=== PATIENT | male | born 1990 | race African-American/Black ===

== ENCOUNTER 2019-01-23 05:27 | Inpatient (IN) ==
[2019-01-23] MEDS ORDERED: ROCURONIUM 100 MG/10 ML VIAL IV ONE ×2 (06:01→09:39)
[2019-01-23] MEDS ORDERED: ETOMIDATE 20 MG/10 ML VIAL IV ONE (06:01)
[2019-01-23] MEDS ORDERED: ROCURONIUM 100 MG/10 ML VIAL IV STA (06:02)
[2019-01-23] MEDS ORDERED: ETOMIDATE 20 MG/10 ML VIAL IV STA (06:03)
[2019-01-23 06:12] LABS: PT Patient Result 11.3 SECS; Partial Thromboplastin Time 36.4 SECS (0-40)
[2019-01-23 06:19] LABS: Alanine Aminotransferase 27 U/L (16-61); Albumin 3.1 G/DL (3.4-5.0); Alkaline Phosphatase 59 U/L (45-117); Amylase 117 U/L (25-115); Aspartate Amino Transferase 23 U/L (0-37); Bilirubin,Total < 0.39 MG/DL (0.2-1.0); Blood Urea Nitrogen 19 MG/DL (7-18); Calcium 9.7 MG/DL (8.5-10.1); Glucose 216 MG/DL (74-106); Total Protein 5.6 G/DL (6.4-8.3)
[2019-01-23 06:27] LABS: Basophils % 0.5 % (0.0-0.8); Eosinophils # 0.1 10*3/uL (0.0-0.87); Eosinophils % 0.8 % (0.00-10.9); Hemoglobin 10.7 GM/DL (14.0-18.0); Immature Granulocytes % 0.9 %; Immature Granulocytes Absolute 0.06 #; Lymphocytes # 3.7 10*3/uL (1.4-4.0); Lymphocytes % 57.6 % (21.2-54.2); Mean Corpuscular HGB Conc 27.4 GM/DL (32-36); Mean Corpuscular Volume 104.8 FL (87-102); Mean Platelet Volume 11.5 FL (9.6-12.0); Monocytes % 6.2 % (1.7-12.7); Platelet Count 184 T/CUMM (130-400); Red Blood Count 3.72 MC/CUMM (3.8-5.5); Red Cell Distribution Width 13.4 % (9.3-17.3); White Blood Count 6.4 T/CUMM (4-12)
[2019-01-23 06:32] LABS: ABG HCO3 9.7 MMOL/L (20-26); ABG Oxygen Saturation 99.3 % (95-100); ABG PCO2 45.6 MM HG (35-48); ABG TCO2 11.1 MMOL/L (23-27)
[2019-01-23 06:34] LABS: ABG PH 6.946 (7.35-7.45); ABG PO2 571.4 MM HG (80-95)
[2019-01-23 06:39] LABS: Apearance,Urine Slightly Hazy (Clear); Bilirubin,Urine Negative (Negative); Blood, Urine Moderate mg/dL (Negative); Glucose,Urine (UA) Negative (Negative); Ketones,Urine Negative (Negative); Nitrite,Urine Negative (Negative); Protein,Urine Negative; RBC,Urine 3 /HPF (0-4); Sperm,Urine Occasional /HPF (Negative); Urine Color Straw (Yellow); Urine Specific Gravity 1.003 (1.001-1.035); Urine Urobilinogen < 2.0 EU/DL (0.2-1.0); WBC,Urine 2 /HPF (0-6)
[2019-01-23] MEDS ORDERED: SODIUM BICARBONATE 50 MEQ/50 ML VIAL IV ONE (06:42)
[2019-01-23 06:45] LABS: Lymphocytes 66 % (20-55); Segmented Neutrophils 27 % (50-85); Total Cells Counted 100
[2019-01-23 06:46] LABS: Anisocytosis Slight; Burr Cells 1+; Platelet Estimate Adequate
[2019-01-23 06:47] LABS: Barbiturates Screen,Urine Negative (Negative); Benzodiazepines Screen,Urine Negative (Negative); Cannabinoid Screen,Urine Positive (Negative); Opiate Screen,Urine Negative (Negative); Phencyclidine Screen,Urine Negative (Negative)
[2019-01-23] MEDS ORDERED: HEPARIN 5,000 UNIT/1 ML VIAL ONE (06:52)
[2019-01-23] MEDS ORDERED: ceFAZolin 1,000 MG VIAL ONE (06:56)
[2019-01-23 07:00] LABS: Lactic Acid 20.3 MMOL/L (0.4-2.0)
[2019-01-23 07:10] LABS: Basophils % 0.2 % (0.0-0.8); Eosinophils # 0.1 10*3/uL (0.0-0.87); Eosinophils % 0.8 % (0.00-10.9); Hematocrit 32.3 VOL% (42.0-52.0); Hemoglobin 9.9 GM/DL (14.0-18.0); Immature Granulocytes % 6.3 %; Immature Granulocytes Absolute 0.53 #; Lymphocytes # 1.9 10*3/uL (1.4-4.0); Lymphocytes % 22.5 % (21.2-54.2); Mean Corpuscular HGB Conc 30.7 GM/DL (32-36); Mean Corpuscular Volume 91.8 FL (87-102); Mean Platelet Volume 10.5 FL (9.6-12.0); Monocytes % 2.7 % (1.7-12.7); Neutrophils % 67.5 % (38.7-73.9); Platelet Count 130 T/CUMM (130-400); Red Blood Count 3.52 MC/CUMM (3.8-5.5); Red Cell Distribution Width 13.7 % (9.3-17.3); White Blood Count 8.4 T/CUMM (4-12)
[2019-01-23] MEDS ORDERED: PROPOFOL 1,000 MG/100 ML BOTTLE IV SCH ×2 (08:00→17:30)
[2019-01-23 08:20] LABS: Band Neutrophils 4 % (0-10); Lymphocytes 12 % (20-55); Platelet Estimate Adequate; Polychromasia Slight; Segmented Neutrophils 81 % (50-85); Total Cells Counted 100
[2019-01-23 09:09] LABS: ABG Base Excess -1.8 MMOL/L (-2.5-2.5); ABG HCO3 22.9 MMOL/L (20-26); ABG Oxygen Saturation 98.8 % (95-100); ABG PCO2 42.6 MM HG (35-48); ABG PH 7.354 (7.35-7.45); ABG TCO2 21.5 MMOL/L (23-27); Glucose Heart Surgery 108 MG/DL (74-106); Hematocrit Heart Surgery 32.9 PERCENT (42-52); Hemoglobin Heart Surgery 10.7 G/DL (14.0-18.0); Potassium Heart/CVR 4.2 MMOL/L (3.5-5.1)
[2019-01-23] MEDS ORDERED: SEVOFLURANE 1 UNIT/15 MINUTE INH ONE ×2 (09:38→17:06)
[2019-01-23] MEDS ORDERED: HEPARIN 10,000 UNIT/10 ML VIAL ONE (09:38)
[2019-01-23] MEDS ORDERED: PROTAMINE SULFATE 50 MG/5 ML VIAL IV ONE (09:39)
[2019-01-23] MEDS ORDERED: LACTATED RINGERS 2,000 ML IV ONE (09:39)
[2019-01-23] MEDS ORDERED: SODIUM CHLORIDE 0.9% 100 ML IV ONE (09:39)
[2019-01-23] MEDS ORDERED: MIDAZOLAM 2 MG/2 ML VIAL ONE ×2 (09:39→17:06)
[2019-01-23] MEDS ORDERED: PHENYLEPHRINE 1 MG/10 ML SYRINGE IV ONE ×2 (09:39→17:07)
[2019-01-23] MEDS ORDERED: SODIUM CHLORIDE 0.9% 1,000 ML IV ONE (09:39)
[2019-01-23] MEDS ORDERED: PHENYLEPHRINE 10 MG/1 ML VIAL IV ONE (09:39)
[2019-01-23 09:45] LABS: ABG Base Excess -0.8 MMOL/L (-2.5-2.5); ABG HCO3 23.8 MMOL/L (20-26); ABG Oxygen Saturation 99.5 % (95-100); ABG PCO2 41.4 MM HG (35-48); ABG PH 7.378 (7.35-7.45); ABG TCO2 21.8 MMOL/L (23-27)
[2019-01-23] MEDS: fentaNYL INJ 1,250 MCG in SODIUM CHLORIDE 0.9% 225 ML IV PRN ×2 (10:03→22:31)
[2019-01-23 10:38] LABS: Calcium 7.9 MG/DL (8.5-10.1); Osmolality,Calculated 285.1 MOS/KG (273-304)
[2019-01-23 10:43] LABS: Basophils % 0.1 % (0.0-0.8); Eosinophils % 0.1 % (0.00-10.9); Hematocrit 36.9 VOL% (42.0-52.0); Hemoglobin 12.1 GM/DL (14.0-18.0); Immature Granulocytes % 1.3 %; Immature Granulocytes Absolute 0.21 #; Lymphocytes # 2.1 10*3/uL (1.4-4.0); Lymphocytes % 12.8 % (21.2-54.2); Mean Corpuscular HGB Conc 32.8 GM/DL (32-36); Mean Corpuscular Volume 86.8 FL (87-102); Mean Platelet Volume 10.2 FL (9.6-12.0); Monocytes % 4.9 % (1.7-12.7); Neutrophils % 80.8 % (38.7-73.9); Platelet Count 130 T/CUMM (130-400); Red Blood Count 4.25 MC/CUMM (3.8-5.5); Red Cell Distribution Width 13.9 % (9.3-17.3); White Blood Count 16.1 T/CUMM (4-12)
[2019-01-23] MEDS: LACTATED RINGERS 1,000 ML IV SCH ×3 (11:15→23:40)
[2019-01-23] MEDS: MORPHINE 4 MG/1 ML VIAL IV PRN ×2 (13:31→17:50)
[2019-01-23 15:06] LABS: Basophils % 0.2 % (0.0-0.8); Hematocrit 35.7 VOL% (42.0-52.0); Immature Granulocytes % 0.6 %; Immature Granulocytes Absolute 0.09 #; Lymphocytes % 12.5 % (21.2-54.2); Mean Corpuscular HGB Conc 33.6 GM/DL (32-36); Mean Corpuscular Volume 84.6 FL (87-102); Mean Platelet Volume 10.5 FL (9.6-12.0); Monocytes % 7.3 % (1.7-12.7); Neutrophils % 79.4 % (38.7-73.9); Platelet Count 113 T/CUMM (130-400); Red Blood Count 4.22 MC/CUMM (3.8-5.5); Red Cell Distribution Width 14.2 % (9.3-17.3); White Blood Count 16.1 T/CUMM (4-12)
[2019-01-23] MEDS ORDERED: fentaNYL 100 MCG/2 ML VIAL ONE (17:06)
[2019-01-23] MEDS ORDERED: LACTATED RINGERS 1,000 ML IV ONE (17:07)
[2019-01-23] MEDS: ceFAZolin 2,000 MG in SYRINGE 1 EACH IV SCH (17:39)
[2019-01-24] MEDS ORDERED: ceFAZolin 2,000 MG in SYRINGE 1 EACH IV SCH (01:30)
[2019-01-24] MEDS: ceFAZolin 2,000 MG in SYRINGE 1 EACH IV SCH (01:31)
[2019-01-24] MEDS: LACTATED RINGERS 1,000 ML IV SCH ×5 (02:29→23:52)
[2019-01-24 04:22] LABS: ABG Base Excess 0.1 MMOL/L (-2.5-2.5); ABG HCO3 22.7 MMOL/L (20-26); ABG Oxygen Saturation 98.9 % (95-100); ABG PCO2 30.1 MM HG (35-48); ABG PH 7.495 (7.35-7.45); ABG PO2 227.2 MM HG (80-95); ABG TCO2 23.6 MMOL/L (23-27); Allen Test Positive; Pt O2 Delivery Device Ventilator
[2019-01-24 04:29] LABS: Basophils % 0.2 % (0.0-0.8); Eosinophils # 0.1 10*3/uL (0.0-0.87); Eosinophils % 0.6 % (0.00-10.9); Hematocrit 32.8 VOL% (42.0-52.0); Hemoglobin 10.9 GM/DL (14.0-18.0); Immature Granulocytes % 0.5 %; Immature Granulocytes Absolute 0.05 #; Lymphocytes # 2.1 10*3/uL (1.4-4.0); Lymphocytes % 19.2 % (21.2-54.2); Mean Corpuscular HGB Conc 33.2 GM/DL (32-36); Mean Platelet Volume 10.9 FL (9.6-12.0); Monocytes % 5.1 % (1.7-12.7); Neutrophils % 74.4 % (38.7-73.9); Platelet Count 115 T/CUMM (130-400); Red Blood Count 3.86 MC/CUMM (3.8-5.5); Red Cell Distribution Width 14.6 % (9.3-17.3); White Blood Count 10.9 T/CUMM (4-12)
[2019-01-24] MEDS: fentaNYL INJ 1,250 MCG in SODIUM CHLORIDE 0.9% 225 ML IV PRN (05:05)
[2019-01-24] MEDS: PANTOPRAZOLE 40 MG VIAL IV SCH (08:45)
[2019-01-24] MEDS: MORPHINE 4 MG/1 ML VIAL IV PRN ×5 (09:27→23:21)
[2019-01-24] MEDS: ENOXAPARIN 30 MG/0.3 ML SYRINGE SUBCUT SCH (11:35)
[2019-01-24 11:56] LABS: ABG HCO3 23.6 MMOL/L (20-26); ABG Oxygen Saturation 99.2 % (95-100); ABG PCO2 34.6 MM HG (35-48); ABG PH 7.427 (7.35-7.45); ABG TCO2 20.3 MMOL/L (23-27); Pt O2 Delivery Device Ventilator
[2019-01-24] MEDS: ONDANSETRON 4 MG/2 ML VIAL IV PRN (19:55)
[2019-01-25] MEDS: MORPHINE 4 MG/1 ML VIAL IV PRN ×4 (03:13→22:19)
[2019-01-25] MEDS: LACTATED RINGERS 1,000 ML IV SCH ×3 (03:13→16:00)
[2019-01-25] MEDS: ENOXAPARIN 30 MG/0.3 ML SYRINGE SUBCUT SCH (08:40)
[2019-01-25] MEDS: PANTOPRAZOLE 40 MG VIAL IV SCH (08:40)
[2019-01-25] MEDS: ONDANSETRON 4 MG/2 ML VIAL IV PRN (20:00)
[2019-01-26] MEDS: LACTATED RINGERS 1,000 ML IV SCH ×5 (02:18→20:00)
[2019-01-26 04:30] LABS: Basophils % 0.3 % (0.0-0.8); Eosinophils # 0.2 10*3/uL (0.0-0.87); Eosinophils % 1.7 % (0.00-10.9); Hematocrit 23.8 VOL% (42.0-52.0); Hemoglobin 7.5 GM/DL (14.0-18.0); Immature Granulocytes % 0.7 %; Immature Granulocytes Absolute 0.07 #; Lymphocytes # 1.7 10*3/uL (1.4-4.0); Lymphocytes % 16.7 % (21.2-54.2); Mean Corpuscular HGB Conc 31.5 GM/DL (32-36); Mean Corpuscular Volume 91.2 FL (87-102); Mean Platelet Volume 10.2 FL (9.6-12.0); Monocytes % 7.9 % (1.7-12.7); Neutrophils % 72.7 % (38.7-73.9); Platelet Count 98 T/CUMM (130-400); Red Blood Count 2.61 MC/CUMM (3.8-5.5); Red Cell Distribution Width 14.1 % (9.3-17.3); White Blood Count 10.1 T/CUMM (4-12)
[2019-01-26 04:51] LABS: Calcium 8.3 MG/DL (8.5-10.1); Osmolality,Calculated 276.7 MOS/KG (273-304)
[2019-01-26] MEDS: PANTOPRAZOLE 40 MG VIAL IV SCH (08:19)
[2019-01-26] MEDS: MORPHINE 4 MG/1 ML VIAL IV PRN (08:19)
[2019-01-26] MEDS ORDERED: SODIUM CHLORIDE 0.9% 1,000 ML IV PRN (08:41)
[2019-01-26] MEDS: ENOXAPARIN 30 MG/0.3 ML SYRINGE SUBCUT SCH (10:05)
[2019-01-26] MEDS ORDERED: hydrALAZINE 20 MG/1 ML VIAL IV ONE ×3 (11:00→13:59)
[2019-01-26] MEDS ORDERED: METOPROLOL TARTRATE 5 MG/5 ML VIAL IV PRN (11:16)
[2019-01-26] MEDS: HYDROmorphone 2 MG/1 ML VIAL IV PRN ×4 (11:50→22:00)
[2019-01-26 13:17] LABS: Basophils % 0.2 % (0.0-0.8); Eosinophils # 0.1 10*3/uL (0.0-0.87); Eosinophils % 0.9 % (0.00-10.9); Hematocrit 23.6 VOL% (42.0-52.0); Hemoglobin 7.5 GM/DL (14.0-18.0); Immature Granulocytes % 0.5 %; Immature Granulocytes Absolute 0.05 #; Lymphocytes # 1.3 10*3/uL (1.4-4.0); Lymphocytes % 12.7 % (21.2-54.2); Mean Corpuscular HGB Conc 31.8 GM/DL (32-36); Mean Corpuscular Volume 91.1 FL (87-102); Mean Platelet Volume 10.9 FL (9.6-12.0); Monocytes % 8.2 % (1.7-12.7); Neutrophils % 77.5 % (38.7-73.9); Platelet Count 106 T/CUMM (130-400); Red Blood Count 2.59 MC/CUMM (3.8-5.5); Red Cell Distribution Width 14.1 % (9.3-17.3); White Blood Count 9.9 T/CUMM (4-12)
[2019-01-26] MEDS ORDERED: LABETALOL 100 MG/20 ML VIAL IV ONE (13:22)
[2019-01-26] MEDS ORDERED: LABETALOL 20 MG/4 ML SYRINGE IV ONE (13:25)
[2019-01-26 13:55] LABS: Basophils % 0.2 % (0.0-0.8); Eosinophils # 0.1 10*3/uL (0.0-0.87); Eosinophils % 0.9 % (0.00-10.9); Hematocrit 29.5 VOL% (42.0-52.0); Hemoglobin 9.4 GM/DL (14.0-18.0); Immature Granulocytes % 0.4 %; Immature Granulocytes Absolute 0.04 #; Lymphocytes # 1.5 10*3/uL (1.4-4.0); Lymphocytes % 15.3 % (21.2-54.2); Mean Corpuscular HGB Conc 31.9 GM/DL (32-36); Mean Platelet Volume 10.5 FL (9.6-12.0); Monocytes % 6.3 % (1.7-12.7); Neutrophils % 76.9 % (38.7-73.9); Platelet Count 97 T/CUMM (130-400); Red Blood Count 3.24 MC/CUMM (3.8-5.5); Red Cell Distribution Width 13.9 % (9.3-17.3); White Blood Count 9.6 T/CUMM (4-12)
[2019-01-26] MEDS ORDERED: MIDAZOLAM 2 MG/2 ML VIAL ONE (14:15)
[2019-01-26] MEDS ORDERED: ONDANSETRON 4 MG/2 ML VIAL ONE (14:15)
[2019-01-26] MEDS ORDERED: SUCCINYLCHOLINE 200 MG/10 ML VIAL ONE (14:15)
[2019-01-26] MEDS ORDERED: SEVOFLURANE 1 UNIT/15 MINUTE INH ONE (14:15)
[2019-01-26] MEDS ORDERED: PROPOFOL 200 MG/20 ML VIAL IV ONE (14:15)
[2019-01-26 14:47] LABS: Platelet Estimate Decreased
[2019-01-26] MEDS: cloNIDine 0.3 MG/24 HR PATCH TRANSDERM SCH (15:00)
[2019-01-26] MEDS: amLODIPine 10 MG TABLET PO SCH (15:00)
[2019-01-26 15:42] LABS: Albumin 2.2 G/DL (3.4-5.0); Bilirubin,Total 0.5 MG/DL (0.2-1.0); Calcium 8.1 MG/DL (8.5-10.1); Osmolality,Calculated 274.8 MOS/KG (273-304); Total Protein 4.5 G/DL (6.4-8.3)
[2019-01-26] MEDS ORDERED: NIFEdipine 10 MG CAPSULE PO PRN (16:45)
[2019-01-27] MEDS: HYDROmorphone 2 MG/1 ML VIAL IV PRN ×8 (00:10→20:21)
[2019-01-27] MEDS: LACTATED RINGERS 1,000 ML IV SCH ×5 (05:57→21:28)
[2019-01-27 06:06] LABS: Basophils % 0.1 % (0.0-0.8); Eosinophils % 0.4 % (0.00-10.9); Hematocrit 25.2 VOL% (42.0-52.0); Hemoglobin 8.1 GM/DL (14.0-18.0); Immature Granulocytes % 0.3 %; Immature Granulocytes Absolute 0.02 #; Lymphocytes % 13.7 % (21.2-54.2); Mean Corpuscular HGB Conc 32.1 GM/DL (32-36); Mean Corpuscular Volume 89.4 FL (87-102); Mean Platelet Volume 10.6 FL (9.6-12.0); Monocytes % 11.7 % (1.7-12.7); Neutrophils % 73.8 % (38.7-73.9); Platelet Count 127 T/CUMM (130-400); Red Blood Count 2.82 MC/CUMM (3.8-5.5); Red Cell Distribution Width 13.9 % (9.3-17.3); White Blood Count 7.6 T/CUMM (4-12)
[2019-01-27 06:25] LABS: Albumin 2.2 G/DL (3.4-5.0); Bilirubin,Total 0.6 MG/DL (0.2-1.0); Calcium 8.2 MG/DL (8.5-10.1); Osmolality,Calculated 277.5 MOS/KG (273-304); Total Protein 5.3 G/DL (6.4-8.3)
[2019-01-27] MEDS: PANTOPRAZOLE 40 MG VIAL IV SCH (08:37)
[2019-01-27] MEDS: amLODIPine 10 MG TABLET PO SCH (08:38)
[2019-01-27] MEDS: ENOXAPARIN 30 MG/0.3 ML SYRINGE SUBCUT SCH (09:00)
[2019-01-27] MEDS ORDERED: ACETAMINOPHEN 325 MG TABLET ONE (12:33)
[2019-01-27] MEDS: IBUPROFEN 200 MG TABLET PO PRN (16:10)
[2019-01-28 05:22] LABS: Basophils % 0.2 % (0.0-0.8); Eosinophils % 0.4 % (0.00-10.9); Hematocrit 26.8 VOL% (42.0-52.0); Hemoglobin 8.4 GM/DL (14.0-18.0); Immature Granulocytes % 0.4 %; Immature Granulocytes Absolute 0.04 #; Lymphocytes # 1.3 10*3/uL (1.4-4.0); Lymphocytes % 12.2 % (21.2-54.2); Mean Corpuscular HGB Conc 31.3 GM/DL (32-36); Mean Corpuscular Volume 90.8 FL (87-102); Mean Platelet Volume 10.5 FL (9.6-12.0); Monocytes % 13.2 % (1.7-12.7); Neutrophils % 73.6 % (38.7-73.9); Platelet Count 168 T/CUMM (130-400); Red Blood Count 2.95 MC/CUMM (3.8-5.5); White Blood Count 10.6 T/CUMM (4-12)
[2019-01-28 05:44] LABS: Calcium 8.7 MG/DL (8.5-10.1); Osmolality,Calculated 275.8 MOS/KG (273-304)
[2019-01-28] MEDS: LACTATED RINGERS 1,000 ML IV SCH ×2 (06:22→15:24)
[2019-01-28 07:42] LABS: INR 0.9; PT Patient Result 10.1 SECS; Partial Thromboplastin Time 28.9 SECS (0-40)
[2019-01-28] MEDS: HYDROmorphone 2 MG/1 ML VIAL IV PRN ×2 (08:33→21:33)
[2019-01-28] MEDS ORDERED: VANCOMYCIN INJ 2,250 MG in SODIUM CHLORIDE 0.9% 500 ML IV ONE (09:00)
[2019-01-28] MEDS: CARVEDILOL 12.5 MG TABLET PO SCH ×2 (09:05→21:33)
[2019-01-28] MEDS: PANTOPRAZOLE 40 MG VIAL IV SCH (09:05)
[2019-01-28] MEDS: amLODIPine 10 MG TABLET PO SCH (09:05)
[2019-01-28] MEDS: IBUPROFEN 200 MG TABLET PO PRN (10:37)
[2019-01-28] MEDS: PIPERACILLIN/TAZOBACTAM 3,375 MG in SODIUM CHLORIDE 0.9% 100 ML IV SCH ×2 (11:38→18:34)
[2019-01-28 13:42] LABS: Apearance,Urine Slightly Hazy (Clear); Bacteria,Urine Occasional /HPF (Few); Bilirubin,Urine Negative (Negative); Blood, Urine Large mg/dL (Negative); Glucose,Urine (UA) Negative (Negative); Ketones,Urine Negative (Negative); Nitrite,Urine Negative (Negative); Protein,Urine 30 MG/DL; RBC,Urine 9 /HPF (0-4); Urine Color Yellow (Yellow); Urine Specific Gravity 1.008 (1.001-1.035); Urine Urobilinogen < 2.0 EU/DL (0.2-1.0); WBC,Urine 1 /HPF (0-6)
[2019-01-29] MEDS: LACTATED RINGERS 1,000 ML IV SCH ×2 (01:08→08:36)
[2019-01-29] MEDS: PIPERACILLIN/TAZOBACTAM 3,375 MG in SODIUM CHLORIDE 0.9% 100 ML IV SCH ×3 (01:37→18:59)
[2019-01-29 04:54] LABS: Basophils % 0.2 % (0.0-0.8); Eosinophils # 0.1 10*3/uL (0.0-0.87); Eosinophils % 0.4 % (0.00-10.9); Hematocrit 23.8 VOL% (42.0-52.0); Hemoglobin 7.4 GM/DL (14.0-18.0); Immature Granulocytes % 0.8 %; Immature Granulocytes Absolute 0.09 #; Lymphocytes # 1.4 10*3/uL (1.4-4.0); Lymphocytes % 11.8 % (21.2-54.2); Mean Corpuscular HGB Conc 31.1 GM/DL (32-36); Mean Corpuscular Volume 93.3 FL (87-102); Mean Platelet Volume 10.8 FL (9.6-12.0); Monocytes % 15.7 % (1.7-12.7); Neutrophils % 71.1 % (38.7-73.9); Platelet Count 190 T/CUMM (130-400); Red Blood Count 2.55 MC/CUMM (3.8-5.5); White Blood Count 11.8 T/CUMM (4-12)
[2019-01-29 05:15] LABS: Band Neutrophils 5 % (0-10); Lymphocytes 16 % (20-55); Segmented Neutrophils 68 % (50-85); Total Cells Counted 100
[2019-01-29 05:16] LABS: Hypochromasia 1+; Platelet Estimate Adequate
[2019-01-29 05:27] LABS: Calcium 7.9 MG/DL (8.5-10.1); Osmolality,Calculated 284.5 MOS/KG (273-304)
[2019-01-29] MEDS ORDERED: VANCOMYCIN INJ 1,250 MG in SODIUM CHLORIDE 0.9% 250 ML IV SCH (09:00)
[2019-01-29] MEDS: CARVEDILOL 12.5 MG TABLET PO SCH ×2 (09:27→21:15)
[2019-01-29] MEDS: amLODIPine 10 MG TABLET PO SCH (09:28)
[2019-01-29] MEDS: PANTOPRAZOLE 40 MG VIAL IV SCH (09:28)
[2019-01-29] MEDS: HYDROmorphone 2 MG/1 ML VIAL IV PRN ×4 (09:29→23:00)
[2019-01-29] MEDS: HEPARIN 5,000 UNIT/1 ML VIAL SUBCUT SCH ×2 (16:00→23:20)
[2019-01-30] MEDS: HYDROmorphone 2 MG/1 ML VIAL IV PRN ×6 (01:00→21:55)
[2019-01-30] MEDS: PIPERACILLIN/TAZOBACTAM 3,375 MG in SODIUM CHLORIDE 0.9% 100 ML IV SCH ×2 (03:42→09:56)
[2019-01-30 06:15] LABS: Basophils % 0.2 % (0.0-0.8); Eosinophils # 0.1 10*3/uL (0.0-0.87); Hematocrit 21.9 VOL% (42.0-52.0); Hemoglobin 7.1 GM/DL (14.0-18.0); Immature Granulocytes % 0.7 %; Immature Granulocytes Absolute 0.09 #; Lymphocytes # 1.7 10*3/uL (1.4-4.0); Lymphocytes % 13.5 % (21.2-54.2); Mean Corpuscular HGB Conc 32.4 GM/DL (32-36); Mean Corpuscular Volume 88.3 FL (87-102); Mean Platelet Volume 10.7 FL (9.6-12.0); Monocytes % 15.5 % (1.7-12.7); Neutrophils % 69.1 % (38.7-73.9); Platelet Count 302 T/CUMM (130-400); Red Blood Count 2.48 MC/CUMM (3.8-5.5); Red Cell Distribution Width 13.8 % (9.3-17.3); White Blood Count 12.4 T/CUMM (4-12)
[2019-01-30] MEDS: HEPARIN 5,000 UNIT/1 ML VIAL SUBCUT SCH ×3 (06:42→23:03)
[2019-01-30 06:54] LABS: Calcium 7.8 MG/DL (8.5-10.1); Osmolality,Calculated 289.3 MOS/KG (273-304)
[2019-01-30] MEDS: PANTOPRAZOLE 40 MG VIAL IV SCH (08:42)
[2019-01-30] MEDS: CARVEDILOL 12.5 MG TABLET PO SCH ×2 (08:42→23:02)
[2019-01-30] MEDS: amLODIPine 10 MG TABLET PO SCH (08:42)
[2019-01-30] MEDS: IBUPROFEN 200 MG TABLET PO PRN (08:42)
[2019-01-30 09:13] LABS: Apearance,Urine CLEAR (Clear); Bacteria,Urine Occasional /HPF (Few); Bilirubin,Urine Negative (Negative); Blood, Urine Moderate mg/dL (Negative); Glucose,Urine (UA) Negative (Negative); Ketones,Urine Negative (Negative); Nitrite,Urine Negative (Negative); Protein,Urine 30 MG/DL; RBC,Urine <1 /HPF (0-4); Urine Color Straw (Yellow); Urine Specific Gravity 1.006 (1.001-1.035); Urine Urobilinogen < 2.0 EU/DL (0.2-1.0); WBC,Urine 1 /HPF (0-6)
[2019-01-30] MEDS: DIAZEPAM 5 MG TABLET PO SCH ×3 (09:13→23:02)
[2019-01-30] MEDS: LINEZOLID INJ 600 MG in PREMIX 1 EACH IV SCH (14:36)
[2019-01-30] MEDS: LEVOFLOXACIN INJ 750 MG in PREMIX 1 EACH IV SCH (14:36)
[2019-01-31] MEDS: HYDROmorphone 2 MG/1 ML VIAL IV PRN ×7 (00:02→17:45)
[2019-01-31] MEDS: LINEZOLID INJ 600 MG in PREMIX 1 EACH IV SCH ×2 (00:50→14:50)
[2019-01-31] MEDS: DIAZEPAM 5 MG TABLET PO SCH ×4 (03:36→21:08)
[2019-01-31 04:46] LABS: Basophils % 0.2 % (0.0-0.8); Eosinophils # 0.1 10*3/uL (0.0-0.87); Eosinophils % 0.7 % (0.00-10.9); Hematocrit 21.7 VOL% (42.0-52.0); Immature Granulocytes % 0.8 %; Lymphocytes # 1.9 10*3/uL (1.4-4.0); Lymphocytes % 15.2 % (21.2-54.2); Mean Corpuscular HGB Conc 32.3 GM/DL (32-36); Mean Corpuscular Volume 88.2 FL (87-102); Mean Platelet Volume 9.5 FL (9.6-12.0); Monocytes % 15.4 % (1.7-12.7); Neutrophils % 67.7 % (38.7-73.9); Platelet Count 408 T/CUMM (130-400); Red Blood Count 2.46 MC/CUMM (3.8-5.5); Red Cell Distribution Width 13.9 % (9.3-17.3); White Blood Count 12.2 T/CUMM (4-12)
[2019-01-31 04:52] LABS: Calcium 7.8 MG/DL (8.5-10.1); Osmolality,Calculated 287.4 MOS/KG (273-304)
[2019-01-31] MEDS: HEPARIN 5,000 UNIT/1 ML VIAL SUBCUT SCH ×3 (06:40→23:41)
[2019-01-31] MEDS: PANTOPRAZOLE 40 MG VIAL IV SCH (09:16)
[2019-01-31] MEDS: POTASSIUM CHLORIDE 20 MEQ TABLET PO PRN (09:16)
[2019-01-31] MEDS: amLODIPine 10 MG TABLET PO SCH (09:16)
[2019-01-31] MEDS: CARVEDILOL 12.5 MG TABLET PO SCH ×2 (09:17→21:08)
[2019-01-31] MEDS: SODIUM HYPOCHLORITE 0.25% IRRIG 473 ML BOTTLE TOP SCH ×2 (11:20→22:29)
[2019-01-31] MEDS: ACETAMINOPHEN 500 MG TABLET PO PRN (17:08)
[2019-02-01] MEDS: HYDROmorphone 2 MG/1 ML VIAL IV PRN ×6 (00:14→20:56)
[2019-02-01] MEDS: DIAZEPAM 5 MG TABLET PO SCH ×4 (04:56→20:55)
[2019-02-01] MEDS: LINEZOLID INJ 600 MG in PREMIX 1 EACH IV SCH ×2 (04:56→12:30)
[2019-02-01 05:44] LABS: Basophils % 0.3 % (0.0-0.8); Eosinophils # 0.2 10*3/uL (0.0-0.87); Eosinophils % 1.4 % (0.00-10.9); Hematocrit 24.5 VOL% (42.0-52.0); Hemoglobin 7.8 GM/DL (14.0-18.0); Immature Granulocytes % 1.1 %; Immature Granulocytes Absolute 0.16 #; Lymphocytes # 2.7 10*3/uL (1.4-4.0); Lymphocytes % 17.7 % (21.2-54.2); Mean Corpuscular HGB Conc 31.8 GM/DL (32-36); Mean Corpuscular Volume 89.1 FL (87-102); Mean Platelet Volume 9.8 FL (9.6-12.0); Monocytes % 15.8 % (1.7-12.7); Neutrophils % 63.7 % (38.7-73.9); Platelet Count 565 T/CUMM (130-400); Red Blood Count 2.75 MC/CUMM (3.8-5.5); Red Cell Distribution Width 14.2 % (9.3-17.3); White Blood Count 15.1 T/CUMM (4-12)
[2019-02-01 06:11] LABS: Calcium 7.7 MG/DL (8.5-10.1); Osmolality,Calculated 288.3 MOS/KG (273-304)
[2019-02-01 06:12] LABS: Eosinophils 3 % (0-10); Hypochromasia 1+; Lymphocytes 21 % (20-55); Platelet Estimate Increased; Segmented Neutrophils 61 % (50-85); Total Cells Counted 100
[2019-02-01] MEDS: HEPARIN 5,000 UNIT/1 ML VIAL SUBCUT SCH ×2 (06:52→15:07)
[2019-02-01] MEDS: PANTOPRAZOLE 40 MG TABLET PO SCH (08:00)
[2019-02-01] MEDS: amLODIPine 10 MG TABLET PO SCH (08:00)
[2019-02-01] MEDS: CARVEDILOL 25 MG TABLET PO SCH ×2 (08:47→20:55)
[2019-02-01] MEDS: SODIUM HYPOCHLORITE 0.25% IRRIG 473 ML BOTTLE TOP SCH ×3 (08:49→21:03)
[2019-02-01] MEDS: LEVOFLOXACIN INJ 750 MG in PREMIX 1 EACH IV SCH (12:25)
[2019-02-01] MEDS: ACETAMINOPHEN 500 MG TABLET PO PRN (16:42)
[2019-02-02] MEDS: LINEZOLID INJ 600 MG in PREMIX 1 EACH IV SCH ×2 (01:17→14:55)
[2019-02-02 03:03] LABS: Basophils % 0.3 % (0.0-0.8); Eosinophils # 0.2 10*3/uL (0.0-0.87); Eosinophils % 1.7 % (0.00-10.9); Hematocrit 22.8 VOL% (42.0-52.0); Hemoglobin 7.1 GM/DL (14.0-18.0); Immature Granulocytes % 1.2 %; Immature Granulocytes Absolute 0.18 #; Lymphocytes # 2.6 10*3/uL (1.4-4.0); Mean Corpuscular HGB Conc 31.1 GM/DL (32-36); Mean Corpuscular Volume 88.7 FL (87-102); Mean Platelet Volume 8.9 FL (9.6-12.0); Monocytes % 13.1 % (1.7-12.7); Neutrophils % 65.7 % (38.7-73.9); Platelet Count 571 T/CUMM (130-400); Red Blood Count 2.57 MC/CUMM (3.8-5.5); Red Cell Distribution Width 14.2 % (9.3-17.3); White Blood Count 14.5 T/CUMM (4-12)
[2019-02-02 03:36] LABS: Albumin 1.6 G/DL (3.4-5.0); Bilirubin,Total 0.5 MG/DL (0.2-1.0); Calcium 8.4 MG/DL (8.5-10.1); Osmolality,Calculated 289.1 MOS/KG (273-304); Total Protein 5.1 G/DL (6.4-8.3)
[2019-02-02] MEDS: DIAZEPAM 5 MG TABLET PO SCH ×4 (04:45→21:58)
[2019-02-02] MEDS: amLODIPine 10 MG TABLET PO SCH (08:39)
[2019-02-02] MEDS: PANTOPRAZOLE 40 MG TABLET PO SCH (08:39)
[2019-02-02] MEDS: CARVEDILOL 25 MG TABLET PO SCH ×2 (08:39→21:58)
[2019-02-02] MEDS: SODIUM HYPOCHLORITE 0.25% IRRIG 473 ML BOTTLE TOP SCH ×2 (08:39→21:58)
[2019-02-02] MEDS: cloNIDine 0.3 MG/24 HR PATCH TRANSDERM SCH (10:36)
[2019-02-02] MEDS: AMPICILLIN/SULBACTAM 3,000 MG in SODIUM CHLORIDE 0.9% 100 ML IV SCH ×3 (11:25→22:52)
[2019-02-02] MEDS ORDERED: LACTATED RINGERS 1,000 ML IV SCH (13:30)
[2019-02-02] MEDS ORDERED: SEVOFLURANE 1 UNIT/15 MINUTE INH ONE (14:09)
[2019-02-02] MEDS ORDERED: MIDAZOLAM 2 MG/2 ML VIAL ONE (14:09)
[2019-02-02] MEDS ORDERED: PROPOFOL 200 MG/20 ML VIAL IV ONE (14:09)
[2019-02-02] MEDS ORDERED: KETAMINE 500 MG/10 ML VIAL ONE (14:10)
[2019-02-02] MEDS ORDERED: GLYCOPYRROLATE 0.4 MG/2 ML VIAL ONE (14:10)
[2019-02-02] MEDS: HYDROmorphone 2 MG/1 ML VIAL IV PRN ×4 (15:13→23:49)
[2019-02-03] MEDS: LINEZOLID INJ 600 MG in PREMIX 1 EACH IV SCH ×2 (01:26→14:26)
[2019-02-03] MEDS: HYDROmorphone 2 MG/1 ML VIAL IV PRN ×4 (03:49→14:24)
[2019-02-03] MEDS: DIAZEPAM 5 MG TABLET PO SCH ×4 (03:49→21:47)
[2019-02-03 04:04] LABS: Basophils % 0.2 % (0.0-0.8); Eosinophils # 0.3 10*3/uL (0.0-0.87); Eosinophils % 1.9 % (0.00-10.9); Hematocrit 22.6 VOL% (42.0-52.0); Hemoglobin 7.3 GM/DL (14.0-18.0); Immature Granulocytes % 1.1 %; Immature Granulocytes Absolute 0.19 #; Lymphocytes # 3.3 10*3/uL (1.4-4.0); Lymphocytes % 19.1 % (21.2-54.2); Mean Corpuscular HGB Conc 32.3 GM/DL (32-36); Mean Corpuscular Volume 88.3 FL (87-102); Mean Platelet Volume 9.1 FL (9.6-12.0); Monocytes % 11.1 % (1.7-12.7); Neutrophils % 66.6 % (38.7-73.9); Platelet Count 690 T/CUMM (130-400); Red Blood Count 2.56 MC/CUMM (3.8-5.5); Red Cell Distribution Width 14.3 % (9.3-17.3); White Blood Count 17.4 T/CUMM (4-12)
[2019-02-03] MEDS: AMPICILLIN/SULBACTAM 3,000 MG in SODIUM CHLORIDE 0.9% 100 ML IV SCH ×4 (04:13→21:47)
[2019-02-03 04:19] LABS: Calcium 8.7 MG/DL (8.5-10.1)
[2019-02-03] MEDS: amLODIPine 10 MG TABLET PO SCH (08:19)
[2019-02-03] MEDS: CARVEDILOL 25 MG TABLET PO SCH ×2 (08:19→21:47)
[2019-02-03] MEDS: PANTOPRAZOLE 40 MG TABLET PO SCH (08:19)
[2019-02-03] MEDS: LEVOFLOXACIN INJ 750 MG in PREMIX 1 EACH IV SCH (12:34)
[2019-02-03] MEDS: SODIUM HYPOCHLORITE 0.25% IRRIG 473 ML BOTTLE TOP SCH ×2 (14:49→22:36)
[2019-02-04] MEDS: DIAZEPAM 5 MG TABLET PO SCH ×4 (02:11→20:22)
[2019-02-04] MEDS: LINEZOLID INJ 600 MG in PREMIX 1 EACH IV SCH ×2 (02:11→15:02)
[2019-02-04] MEDS: AMPICILLIN/SULBACTAM 3,000 MG in SODIUM CHLORIDE 0.9% 100 ML IV SCH (05:25)
[2019-02-04] MEDS ORDERED: SODIUM CHLORIDE 0.65% NASAL SPRAY 45 ML BOTTLE BOTH NARES PRN (09:45)
[2019-02-04] MEDS: CARVEDILOL 25 MG TABLET PO SCH ×2 (10:53→20:22)
[2019-02-04] MEDS: PANTOPRAZOLE 40 MG TABLET PO SCH (10:54)
[2019-02-04] MEDS: amLODIPine 10 MG TABLET PO SCH (10:54)
[2019-02-04] MEDS: SODIUM HYPOCHLORITE 0.25% IRRIG 473 ML BOTTLE TOP SCH (10:54)
[2019-02-04] MEDS ORDERED: HYDROmorphone 2 MG/1 ML VIAL IV ONE (11:59)
[2019-02-04 12:19] LABS: Basophils % 0.2 % (0.0-0.8); Eosinophils # 0.4 10*3/uL (0.0-0.87); Eosinophils % 2.5 % (0.00-10.9); Hematocrit 26.7 VOL% (42.0-52.0); Hemoglobin 8.6 GM/DL (14.0-18.0); Immature Granulocytes % 1.3 %; Immature Granulocytes Absolute 0.19 #; Lymphocytes % 20.5 % (21.2-54.2); Mean Corpuscular HGB Conc 32.2 GM/DL (32-36); Mean Corpuscular Volume 86.7 FL (87-102); Mean Platelet Volume 8.7 FL (9.6-12.0); Monocytes % 10.6 % (1.7-12.7); Neutrophils % 64.9 % (38.7-73.9); Platelet Count 862 T/CUMM (130-400); Red Blood Count 3.08 MC/CUMM (3.8-5.5); Red Cell Distribution Width 14.3 % (9.3-17.3); White Blood Count 14.4 T/CUMM (4-12)
[2019-02-04 12:41] LABS: Calcium 9.1 MG/DL (8.5-10.1); Osmolality,Calculated 282.4 MOS/KG (273-304)
[2019-02-04] MEDS: GABAPENTIN 300 MG CAPSULE PO SCH ×2 (15:18→20:30)
[2019-02-05] MEDS: SODIUM HYPOCHLORITE 0.25% IRRIG 473 ML BOTTLE TOP SCH ×3 (02:40→21:07)
[2019-02-05] MEDS: LINEZOLID INJ 600 MG in PREMIX 1 EACH IV SCH ×2 (03:42→14:44)
[2019-02-05] MEDS: DIAZEPAM 5 MG TABLET PO SCH ×4 (03:42→21:05)
[2019-02-05 05:00] LABS: Basophils % 0.2 % (0.0-0.8); Eosinophils # 0.3 10*3/uL (0.0-0.87); Eosinophils % 2.3 % (0.00-10.9); Hematocrit 23.4 VOL% (42.0-52.0); Hemoglobin 7.2 GM/DL (14.0-18.0); Immature Granulocytes % 1.6 %; Immature Granulocytes Absolute 0.22 #; Lymphocytes # 3.1 10*3/uL (1.4-4.0); Lymphocytes % 22.2 % (21.2-54.2); Mean Corpuscular HGB Conc 30.8 GM/DL (32-36); Mean Platelet Volume 8.8 FL (9.6-12.0); Neutrophils % 63.7 % (38.7-73.9); Platelet Count 738 T/CUMM (130-400); Red Cell Distribution Width 14.2 % (9.3-17.3); White Blood Count 13.9 T/CUMM (4-12)
[2019-02-05 05:19] LABS: Calcium 8.7 MG/DL (8.5-10.1); Osmolality,Calculated 281.5 MOS/KG (273-304)
[2019-02-05] MEDS: GABAPENTIN 300 MG CAPSULE PO SCH ×3 (09:30→21:05)
[2019-02-05] MEDS: amLODIPine 10 MG TABLET PO SCH (09:30)
[2019-02-05] MEDS: PANTOPRAZOLE 40 MG TABLET PO SCH (09:30)
[2019-02-05] MEDS: CARVEDILOL 25 MG TABLET PO SCH ×2 (09:30→21:05)
[2019-02-05] MEDS ORDERED: LACTULOSE 20 GM/30 ML UDCUP PO ONE (10:24)
[2019-02-05] MEDS: LEVOFLOXACIN INJ 750 MG in PREMIX 1 EACH IV SCH (12:57)
[2019-02-06] MEDS: LINEZOLID INJ 600 MG in PREMIX 1 EACH IV SCH (03:07)
[2019-02-06] MEDS: DIAZEPAM 5 MG TABLET PO SCH ×4 (03:07→21:20)
[2019-02-06] MEDS: POTASSIUM CHLORIDE 20 MEQ TABLET PO PRN (08:42)
[2019-02-06] MEDS: amLODIPine 10 MG TABLET PO SCH (08:43)
[2019-02-06] MEDS: GABAPENTIN 300 MG CAPSULE PO SCH ×3 (08:43→21:20)
[2019-02-06] MEDS: PANTOPRAZOLE 40 MG TABLET PO SCH (08:43)
[2019-02-06] MEDS: CARVEDILOL 25 MG TABLET PO SCH ×2 (08:43→21:20)
[2019-02-06] MEDS: SODIUM HYPOCHLORITE 0.25% IRRIG 473 ML BOTTLE TOP SCH ×2 (08:43→21:20)
[2019-02-06 09:15] LABS: Hemoglobin 8.3 GM/DL (14.0-18.0)
[2019-02-07] MEDS: DIAZEPAM 5 MG TABLET PO SCH ×2 (04:47→09:27)
[2019-02-07 05:08] LABS: Basophils # 0.1 10*3/uL (0.0-0.2); Basophils % 0.3 % (0.0-0.8); Eosinophils # 0.4 10*3/uL (0.0-0.87); Eosinophils % 2.4 % (0.00-10.9); Hematocrit 24.6 VOL% (42.0-52.0); Hemoglobin 7.6 GM/DL (14.0-18.0); Immature Granulocytes % 1.1 %; Immature Granulocytes Absolute 0.17 #; Lymphocytes # 3.3 10*3/uL (1.4-4.0); Lymphocytes % 21.4 % (21.2-54.2); Mean Corpuscular HGB Conc 30.9 GM/DL (32-36); Mean Corpuscular Volume 91.4 FL (87-102); Mean Platelet Volume 8.4 FL (9.6-12.0); Neutrophils % 66.8 % (38.7-73.9); Platelet Count 799 T/CUMM (130-400); Red Blood Count 2.69 MC/CUMM (3.8-5.5); Red Cell Distribution Width 14.2 % (9.3-17.3); White Blood Count 15.2 T/CUMM (4-12)
[2019-02-07 05:11] LABS: Albumin 2.3 G/DL (3.4-5.0); Bilirubin,Total 0.6 MG/DL (0.2-1.0); Calcium 8.8 MG/DL (8.5-10.1); Osmolality,Calculated 283.3 MOS/KG (273-304); Total Protein 6.2 G/DL (6.4-8.3)
[2019-02-07] MEDS: amLODIPine 10 MG TABLET PO SCH (09:23)
[2019-02-07] MEDS: CARVEDILOL 25 MG TABLET PO SCH (09:24)
[2019-02-07] MEDS: GABAPENTIN 300 MG CAPSULE PO SCH (09:25)
[2019-02-07] MEDS: PANTOPRAZOLE 40 MG TABLET PO SCH (09:25)
[2019-02-07] MEDS: SODIUM HYPOCHLORITE 0.25% IRRIG 473 ML BOTTLE TOP SCH (09:27)
[2019-02-07 11:02] VITALS: BP 128/70
== END 2019-02-07 10:30 | DRG 958 ==
LOC: EDUNIT# → EDBD → N.ED 05:27 → N.ICU 06:30
PROVIDERS: ADMIT Surgery; ATTEND Surgery
PROC: FASCLOA (2019-01-23 16:12)